=== PATIENT | male | born 1940 | race Caucasian/White ===

== ENCOUNTER → 2016-11-10 | Outpatient (CLI) | payer MEDICARE ==
--- NOTE | 2016-11-10 16:48 | DI ---
Indication: ITS.REASON: C61 PROSTATE CA Comparison: None PROCEDURE: CT of the pelvis without contrast. Technique: Axial CT images were performed through the pelvis without intravenous contrast. Coronal and sagittal two-dimensional reformats. Automated Exposure Control and Iterative Reconstruction dose lowering techniques were utilized. Findings: Exam is performed for radiation therapy treatment planning purposes. The bladder appears normal. No adenopathy or free fluid seen within the pelvis. The visualized small and large bowel loops are within normal limits. Small fat-containing left inguinal hernia. Fatty atrophy of the right anterior quadriceps musculature. Bone windows show mild degenerative changes in the hips and visualized lower lumbar spine without obvious lytic or blastic bony lesion. Impression: Radiation therapy treatment planning exam with findings as above. .
== END ==
LOC: EDSEX → IMA 15:30
PROVIDERS: ATTEND Radiology Radiation Oncology
DX: C61 Malignant neoplasm of prostate (principal)

== ENCOUNTER → 2016-11-18 | Outpatient (CLI) | payer MEDICARE ==
[~2016-11-18] MED LIST: IOHEXOL 300 MG/ML 100ml INJECTION ONE; NORMAL SALINE 100 ML ONE; SALINE FLUSH 10ml SYRINGE ONE
[2016-11-18 08:32] LABS: ANION GAP 15 MEQ/L (5-15); BUN/CREATININE RATIO 17 RATIO (6-26); CALCIUM 9.9 MG/DL (8.4-10.2); CHLORIDE 110 MEQ/L (98-107); CO2 - CARBON DIOXIDE 26 MEQ/L (22-30); GLOMERULAR FILTRATION RATE 54; GLUCOSE 120 MG/DL (65-110); POTASSIUM 4.1 MEQ/L (3.6-5); SODIUM 151 MEQ/L (134-144)
--- NOTE | 2016-11-18 09:14 | DI ---
Indication: ITS.REASON: C61 PROSTATE CA PROCEDURE: CT ABD/PELVIS W/CONTRAST ONLY: Encounter: Initial Comparison: Treatment planning CT dated November 10, 2016 Technique: Axial CT images were performed through the abdomen and pelvis after the administration of intravenous contrast. Coronal and sagittal two-dimensional reformats. Automated Exposure Control and Iterative Reconstruction dose reducing techniques were utilized. Contrast: Omnipaque 300 100 mL Findings: The lung bases are clear. The liver appears normal. No bile duct dilatation. The gallbladder, spleen, pancreas and adrenal glands are within normal limits. Exophytic superior pole left renal cyst measuring 4.1 cm in diameter. Tiny superior pole right renal cyst. Kidneys are otherwise unremarkable. No abdominal or pelvic lymphadenopathy. Small fat-containing left inguinal hernia. Bladder is unremarkable. No free fluid. Prostate is not pathologically enlarged. No evidence of a bowel obstruction. The appendix is normal. Bone windows show mild degenerative changes in the spine and sacroiliac joints without discrete lytic or blastic osseous lesion. Impression: No evidence of metastatic disease. .
--- NOTE | 2016-11-18 13:19 | DI ---
Indication: ITS.REASON: C61 PROSTATE CA PROCEDURE: NM BONE SCAN, WHOLE BODY: Encounter: Subsequent Comparison: CT abdomen and pelvis from today Technique: 25.3 mCi of Tc-99m MDP was administered intravenously. Anterior and posterior planar whole-body and spot images were obtained. FINDINGS: The scan demonstrates the expected normal biodistribution for the radiotracer. There is probable degenerative uptake seen in the right shoulder and right ankle. There is no abnormal radiotracer uptake to suggest bony metastasis. Urine contamination noted IMPRESSION: No evidence of metastatic disease to the skeleton. .
== END ==
LOC: IMA 07:39 → EDSEX 07:39
PROVIDERS: ATTEND Radiology Radiation Oncology
DX: C61 Malignant neoplasm of prostate (principal)
CPT/HCPCS: 36415; 80048